=== PATIENT | male | born 1990 | race Caucasian/White ===

== ENCOUNTER 2018-11-05 17:50 | Emergency (ER) | payer MEDICAID ==
[~2018-11-05] VITALS: Ht 175.3 cm; Wt 87.6 kg
[2018-11-05 18:13] VITALS: BP 121/74
[2018-11-05] MEDS ORDERED: ONDANSETRON 4 MG ODT PO ONE (18:35)
[2018-11-05] MEDS ORDERED: FAMOTIDINE 20 MG TAB PO ONE (18:35)
[2018-11-05 18:55] LABS: BASOPHILS % (AUTO) 0.3 % (0.0-2.0); EOSINOPHILS % (AUTO) 0.1 % (0.0-4.0); HEMATOCRIT 44.7 % (36-52); HEMOGLOBIN 15.5 g/dL (12.0-18.0); LYMPHOCYTES % (AUTO) 18.2 % (20.5-51.1); MEAN CORPUSCULAR HEMOGLOBIN 32 pg (27-31); MEAN CORPUSCULAR HGB CONC 35 g/dL (33-37); MEAN CORPUSCULAR VOLUME 90.8 fL (80-94); MONOCYTES # (AUTO) 0.3 K/uL (0.8-1.0); MONOCYTES % (AUTO) 6.3 % (1.7-9.3); NEUTROPHILS % (AUTO) 75.1 % (42.2-75.2); PLATELET COUNT (AUTO) 284 K/uL (140-450); RED BLOOD CELL COUNT(AUTO) 4.92 MIL/uL (4.20-6.10); RED CELL DISTRIBUTION WIDTH 12.4 % (11.6-13.7); WHITE BLOOD COUNT (AUTO) 5.3 K/uL (4.8-10.8)
[2018-11-05 19:08] LABS: ALBUMIN 4.3 g/dL (3.4-5.0); CARBON DIOXIDE 29.7 mmol/L (21-32); CREATININE 0.9 mg/dL (0.7-1.3); POTASSIUM 3.7 mmol/L (3.5-5.1); TOTAL BILIRUBIN 0.5 mg/dL (0.0-1.0)
[2018-11-05] MEDS ORDERED: DICYCLOMINE HCL LIQUID 10 MG/5 ML UDC PO ONE (19:30)
[2018-11-05] MEDS ORDERED: LIDOCAINE VISCOUS 2% 20 ML UDC PO ONE (19:30)
[2018-11-05] MEDS ORDERED: ALUMINUM HYD/MAG/SIMETHICONE 30 ML UDC PO ONE (19:30)
--- NOTE | 2018-11-05 19:32 | NUR ---
PT TO ED WITH C/O ABD PAIN IN EPIGASTRIC PAIN X 3 DAYS WITH N/V. PT DENIES PAIN UPON PALPATION. BOWEL SOUNDS ACTIVE X 4 QUADRANTS. PT PLACED INTO BED, PENDING MD FUENTES.
--- NOTE | 2018-11-05 19:56 | NUR ---
PT REPORTS RELIEF POST GI COCKTAIL ADMIN.
[2018-11-05 20:04] VITALS: BP 121/74
--- NOTE | 2018-11-05 20:06 | NUR ---
Patient discharged with v/s stable. Written and verbal after care instructions given and explained. Patient alert, oriented and verbalized understanding of instructions. Ambulatory with steady gait. All questions addressed prior to discharge. ID band removed. Patient advised to follow up with PMD. Rx of ZOFRAN, PROTONIX given. Patient educated on indication of medication including possible reaction and side effects. Opportunity to ask questions provided and answered.
== END 2018-11-05 20:06 | disposition home or self-care (01) ==
LOC: MED 17:50
DX: K29.70 Gastritis, unspecified, without bleeding (principal)
CPT/HCPCS: 36415; 80053; 81002; 83690; 85025; 99284; Q0162